=== PATIENT | female | born 1980 | race Caucasian/White ===

== ENCOUNTER 2023-11-19 13:04 | Emergency (ER) | payer OTHER ==
[~2023-11-19] VITALS: Ht 167.6 cm; Wt 95.0 kg
[2023-11-19 13:21] VITALS: O2SAT 99
[2023-11-19] MEDS ORDERED: IBUPROFEN 600MG TABLET PO ONE (17:00)
[2023-11-19] MEDS: IBUPROFEN 600MG TABLET PO NR (19:14)
[2023-11-19 19:16] VITALS: BP 141/81; PULSE 70; RESP 18; TEMP 36.78072; O2SAT 99
== END 2023-11-19 19:16 | disposition home or self-care (01) ==
LOC: ER 15:20
DX: S83.8X1A Sprain of other specified parts of right knee, initial encounter (principal); Z98.51 Tubal ligation status; Z90.49 Acquired absence of other specified parts of digestive tract; X58.XXXA Exposure to other specified factors, initial encounter; Y93.89 Activity, other specified; Y92.89 Other specified places as the place of occurrence of the external cause; Y99.8 Other external cause status
CPT/HCPCS: 73562; 99283

== ENCOUNTER 2024-07-07 13:00 | Emergency (ER) | payer OTHER ==
[~2024-07-07] VITALS: Ht 167.6 cm; Wt 95.0 kg
[2024-07-07 13:01] VITALS: O2SAT 98
[2024-07-07 13:14] VITALS: BP 136/84; PULSE 83; RESP 14; TEMP 36.8; O2SAT 98
[2024-07-07 14:52] LABS: BASOPHILS % 1.1 % (0.0-2.0); EOSINOPHILS % 0.9 % (0.0-5.0); HEMATOCRIT. 36.1 % (36.0-48.0); LYMPHOCYTES % 34.3 % (20.0-50.0); MEAN CORPUSCULAR HEMOGLOBIN 27.9 pg (28.0-32.0); MEAN CORPUSCULAR HGB CONC 33.2 g/dL (31.0-37.0); MEAN CORPUSCULAR VOLUME 84.2 fL (81.0-99.0); MEAN PLATELET VOLUME 8.1 fl (7.4-10.4); MONOCYTES % 7.4 % (2.0-8.0); NEUTROPHILS % 56.3 % (40.0-76.0); PLATELET 352 x1000/uL (130-400); RED BLOOD CELL COUNT 4.28 mill/uL (4.2-5.4); RED CELL DISTRIBUTION WIDTH 16.7 % (11.6-14.6); WHITE BLOOD COUNT 4.8 x1000/uL (4.5-11.0)
[2024-07-07 14:59] LABS: CHLORIDE 103 mEq/L (98-107); SODIUM 140 mEq/L (136-145)
[2024-07-07 15:00] LABS: CALCIUM 9.5 mg/dL (8.7-10.4); CARBON DIOXIDE 27 mEq/L (21-32)
[2024-07-07 15:05] LABS: CREATININE 0.8 mg/dL (0.6-1.0); GLUCOSE 102 mg/dL (70-105); HCG SCREEN NEGATIVE; UREA NITROGEN BLOOD 7 mg/dL (9-23)
[2024-07-07] MEDS ORDERED: IBUP-2029 MT (15:26)
== END 2024-07-07 15:40 | disposition home or self-care (01) ==
LOC: ER 13:00
DX: N83.292 Other ovarian cyst, left side (principal); D25.9 Leiomyoma of uterus, unspecified; Z98.51 Tubal ligation status; Z90.49 Acquired absence of other specified parts of digestive tract
CPT/HCPCS: 36415; 76830; 76856; 80048; 84703; 85025; 86850; 86900; 99284

== ENCOUNTER 2025-01-25 11:49 | Emergency (ER) | payer OTHER ==
[~2025-01-25] VITALS: Ht 162.6 cm; Wt 75.0 kg
[~2025-01-25 11:49] MED LIST: IBUP-1455 MT
[2025-01-25 12:08] VITALS: TEMP 36.7; O2SAT 99
[2025-01-25 13:18] LABS: BASOPHILS % 0.9 % (0.0-2.0); EOSINOPHILS % 0.6 % (0.0-5.0); HEMATOCRIT. 35.4 % (36.0-48.0); HEMOGLOBIN. 11.7 g/dL (12.0-16.0); LYMPHOCYTES % 33.5 % (20.0-50.0); MEAN PLATELET VOLUME 8.5 fl (7.4-10.4); MONOCYTES % 6.9 % (2.0-8.0); NEUTROPHILS % 58.1 % (40.0-76.0); PLATELET 316 x1000/uL (130-400); RED BLOOD CELL COUNT 4.05 mill/uL (4.2-5.4); RED CELL DISTRIBUTION WIDTH 14.2 % (11.6-14.6)
[2025-01-25 13:39] LABS: CREATININE 0.8 mg/dL (0.6-1.0); UREA NITROGEN BLOOD 12 mg/dL (9-23)
[2025-01-25] MEDS: HYDROCODONE/ACETAMINOPHEN 5/325MG TABLET PO ONE (14:12)
[2025-01-25 15:16] LABS: CLARITY URINE CLEAR (CLEAR); COLOR URINE YELLOW (YELLOW); GLUCOSE URINE NEGATIVE (NEGATIVE); KETONES URINE NEGATIVE (NEGATIVE); LEUKOCYTE ESTERASE URINE NEGATIVE (NEGATIVE); NITRITE URINE NEGATIVE (NEGATIVE); OCCULT BLOOD URINE NEGATIVE (NEGATIVE); PH URINE 5.5 (4.5-8.0); PROTEIN URINE NEGATIVE (NEGATIVE); SPECIFIC GRAVITY URINE 1.005 (1.005-1.030); UROBILINOGEN URINE 0.2 E.U./dL (0.2-1.0)
[2025-01-25] MEDS: KETOROLAC 30MG/ML VIAL IM ONE (15:41)
[2025-01-25] MEDS ORDERED: IBUP-2030 MT (16:23)
[2025-01-25 17:00] VITALS: BP 117/81; PULSE 75; RESP 14; O2SAT 99
== END 2025-01-25 17:05 | disposition home or self-care (01) ==
LOC: ER 11:49
DX: D25.1 Intramural leiomyoma of uterus (principal); N83.201 Unspecified ovarian cyst, right side; Z86.018 Personal history of other benign neoplasm; Z90.49 Acquired absence of other specified parts of digestive tract; Z98.51 Tubal ligation status; Z79.1 Long term (current) use of non-steroidal anti-inflammatories (NSAID)
CPT/HCPCS: 99285; 76830; 76856; 80048; 81003; 81025; 85025; 36415; 96372; J1885